=== PATIENT | female | born 1970 | race Two or more races ===

== ENCOUNTER → 2016-10-11 | Outpatient (REF) | payer OTHER ==
[2016-10-11 12:21] LABS: ALBUMIN 3.8 GM/DL (3.2-5.2); ALBUMIN/GLOBULIN RATIO 1.23 (1.00-1.93); ALKALINE PHOSPHATASE 49 U/L (45-117); ALT/SGPT 21 U/L (12-78); ANION GAP 10 MEQ/L (8-16); AST/SGOT 16 U/L (15-37); BILIRUBIN,TOTAL 0.4 MG/DL (0.2-1.0); BLOOD UREA NITROGEN 13 MG/DL (7-18); CALCIUM LEVEL 8.7 MG/DL (8.5-10.1); CARBON DIOXIDE LEVEL 27 MEQ/L (21-32); CHLORIDE LEVEL 104 MEQ/L (98-107); CHOLESTEROL LEVEL 205 MG/DL (<200); CREATININE FOR GFR 0.76 MG/DL (0.55-1.02); FREE T4 0.83 NG/DL (0.76-1.46); GLOMERULAR FILTRATION RATE > 60.0 (>58); GLUCOSE, FASTING 89 MG/DL (70-105); POTASSIUM SERUM 4.7 MEQ/L (3.5-5.1); SODIUM LEVEL 141 MEQ/L (136-145); TOTAL PROTEIN 6.9 GM/DL (6.4-8.2); TRIGLYCERIDES LEVEL 135 MG/DL (<150)
[2016-10-11 12:25] LABS: BASO # 0.1 K/mm3 (0.0-0.2); EOS # 0.2 K/mm3 (0.0-0.50); EOS % 2.4 % (0.0-3.0); LARGE UNSTAINED CELL # 0.2 K/mm3 (0.0-0.4); LARGE UNSTAINED CELL % 2.2 % (0.0-4.0); LYMPH # 1.9 K/mm3 (1.5-4.5); LYMPH % 26.8 % (24.0-44.0); MEAN CORPUSCULAR HGB CONC 32.9 g/dl (32.0-36.5); MEAN CORPUSCULAR VOLUME 97.1 fl (80.0-96.0); MONO # 0.3 K/mm3 (0.0-0.8); MONO % 4.7 % (0.0-5.0); NEUTROPHILS # 4.5 K/mm3 (1.8-7.7); NEUTROPHILS % 62.8 % (36.0-66.0); PLATELET COUNT, AUTOMATED 301 k/mm3 (150-450); RED CELL DISTRIBUTION WIDTH 13.2 % (11.5-14.5); WHITE BLOOD COUNT 7.1 K/mm3 (4.0-10.0)
== END ==
LOC: M SFHCPLAZ 09:41
PROVIDERS: ATTEND Nurse Practitioner Family
DX: Z00.00 Encounter for general adult medical examination without abnormal findings (principal); R94.6 Abnormal results of thyroid function studies; Z13.220 Encounter for screening for lipoid disorders

== ENCOUNTER → 2016-12-09 | Outpatient (REF) | payer OTHER ==
[2016-12-09 14:53] LABS: FREE T4 1.06 NG/DL (0.76-1.46)
== END ==
LOC: M SFHCPLAZ 10:19
PROVIDERS: ATTEND Nurse Practitioner Family
DX: E03.9 Hypothyroidism, unspecified (principal)

== ENCOUNTER → 2017-03-24 | Outpatient (REF) | payer OTHER ==
[2017-03-24 13:12] LABS: FREE T4 1.09 NG/DL (0.76-1.46)
== END ==
LOC: M SFHCPLAZ 07:48
DX: E03.9 Hypothyroidism, unspecified (principal)

== ENCOUNTER → 2017-06-16 | Outpatient (REF) | payer OTHER ==
[2017-06-16 18:54] LABS: TOTAL 25(OH) VITAMIN D 29.5 NG/ML (30.0-100.0)
[2017-06-16 19:02] LABS: ANION GAP 6 MEQ/L (8-16); BLOOD UREA NITROGEN 22 MG/DL (7-18); CALCIUM LEVEL 8.7 MG/DL (8.5-10.1); CARBON DIOXIDE LEVEL 27 MEQ/L (21-32); CHLORIDE LEVEL 109 MEQ/L (98-107); CREATININE FOR GFR 0.98 MG/DL (0.55-1.30); FREE T4 1.46 NG/DL (0.76-1.46); GLOMERULAR FILTRATION RATE > 60.0 (>58); GLUCOSE, FASTING 80 MG/DL (70-100); POTASSIUM SERUM 4.1 MEQ/L (3.5-5.1); SODIUM LEVEL 142 MEQ/L (136-145); THYROID STIMULATING HORMONE 0.356 uIU/ML (0.358-3.740)
[2017-06-16 19:22] LABS: HEMATOCRIT 40.6 % (36.0-47.0); MEAN CORPUSCULAR HEMOGLOBIN 29.6 pg (27.0-33.0); MEAN CORPUSCULAR VOLUME 92.5 fl (80.0-96.0); PLATELET COUNT, AUTOMATED 295 10^3/uL (150-450); RED BLOOD COUNT 4.39 10^6/uL (4.00-5.40); RED CELL DISTRIBUTION WIDTH 12.8 % (11.5-14.5); WHITE BLOOD COUNT 8.3 10^3/uL (4.0-10.0)
== END ==
LOC: M SFHCPLAZ 14:43
DX: E03.9 Hypothyroidism, unspecified (principal); E55.9 Vitamin D deficiency, unspecified; R53.83 Other fatigue
CPT/HCPCS: 84443

== ENCOUNTER → 2017-07-01 | Outpatient (CLI) | payer OTHER | LOC: M WHC 16:25 | DX: Z12.31 Encounter for screening mammogram for malignant neoplasm of breast (principal) | CPT/HCPCS: 77067 ==

== ENCOUNTER → 2017-08-01 | Outpatient (REF) | payer OTHER ==
[2017-08-01 13:02] LABS: FREE T4 1.26 NG/DL (0.76-1.46)
== END ==
LOC: M SFHCPLAZ 08:38
DX: E03.9 Hypothyroidism, unspecified (principal)
CPT/HCPCS: 84443

== ENCOUNTER → 2018-02-03 | Outpatient (REF) | payer OTHER ==
[2018-02-03 12:35] LABS: TOTAL 25(OH) VITAMIN D 40.7 NG/ML (30.0-100.0)
== END ==
LOC: M SFHCPLAZ 08:43
DX: E03.9 Hypothyroidism, unspecified (principal); E55.9 Vitamin D deficiency, unspecified

== ENCOUNTER → 2018-06-09 | Outpatient (REF) | payer OTHER | LOC: M SFHCPLAZ 15:49 | PROVIDERS: ATTEND Nurse Practitioner Family | DX: M54.5 Low back pain (principal) ==

== ENCOUNTER → 2018-06-09 | Outpatient (CLI) | payer OTHER ==
[2018-06-09 14:16] LABS: BASO % 0.9 % (0.0-1.0); EOS # 0.1 10^3/uL (0.0-0.50); EOS % 1.3 % (0.0-3.0); HEMATOCRIT 42.2 % (36.0-47.0); HEMOGLOBIN 13.8 g/dl (12.0-15.5); LYMPH # 2.2 10^3/uL (1.5-4.5); LYMPH % 46.4 % (24.0-44.0); MEAN CORPUSCULAR HEMOGLOBIN 31.3 pg (27.0-33.0); MEAN CORPUSCULAR HGB CONC 32.7 g/dl (32.0-36.5); MEAN CORPUSCULAR VOLUME 95.7 fl (80.0-96.0); MONO # 0.7 10^3/uL (0.0-0.8); MONO % 15.5 % (0.0-5.0); NEUTROPHILS # 1.7 10^3/uL (1.8-7.7); NEUTROPHILS % 35.7 % (36.0-66.0); PLATELET COUNT, AUTOMATED 273 10^3/uL (150-450); RED BLOOD COUNT 4.41 10^6/uL (4.00-5.40); WHITE BLOOD COUNT 4.7 10^3/uL (4.0-10.0)
[2018-06-09 14:43] LABS: ALBUMIN 4.1 GM/DL (3.2-5.2); ALT/SGPT 27 U/L (12-78); BILIRUBIN,TOTAL 0.4 MG/DL (0.2-1.0); BLOOD UREA NITROGEN 15 MG/DL (7-18); CALCIUM LEVEL 8.8 MG/DL (8.5-10.1); CARBON DIOXIDE LEVEL 27 MEQ/L (21-32); CHLORIDE LEVEL 105 MEQ/L (98-107); CREATININE FOR GFR 0.82 MG/DL (0.55-1.30); GLOMERULAR FILTRATION RATE > 60.0 (>58); GLUCOSE, FASTING 92 MG/DL (70-100); POTASSIUM SERUM 3.9 MEQ/L (3.5-5.1); SODIUM LEVEL 138 MEQ/L (136-145); TOTAL PROTEIN 7.2 GM/DL (6.4-8.2)
--- NOTE | 2018-06-09 16:08 | REP ---
RENAL AND BLADDER ULTRASOUND: Real-time sonographic evaluation of the kidneys are performed. The kidneys are normal in size and echotexture, right kidney measuring 9.9 x 4.5 x 4.0 cm and left kidney 12.0 x 4.3 x 5.7 cm. There is no hydronephrosis bilaterally. Focal cystic area in the lower pole of the left kidney probably represents a parapelvic cyst. Alternatively this could represent focal pelvocaliectasis. No renal stone is seen bilaterally. Urinary bladder is moderately distended with no mass or calculus. IMPRESSION: No evidence of renal or bladder calculus. Focal cystic area in the lower pole of the left kidney may represent a parapelvic cyst or focal pelvocaliectasis. Maximum diameter is 1.8 cm. Electronically Signed by Ananth Jones MD 06/10/2018 11:09 A
== END ==
LOC: M RAD 13:53
PROVIDERS: ATTEND Nurse Practitioner Family
DX: N28.1 Cyst of kidney, acquired (principal)

== ENCOUNTER → 2018-06-11 | Outpatient (CLI) | payer OTHER ==
[~2018-06-11] MED LIST: ISOVUE-370 76% 125ML VIAL (Q9967 PER ML) As Ordered ONE
--- NOTE | 2018-06-11 11:39 | REP ---
CT abdomen and pelvis without and with IV contrast: Without oral contrast. History: Acute left-sided low back and abdomen pain. Without sciatica. Comparison CT study January 23, 2010. CT findings: Digital preliminary pattern developer radiographs are unremarkable. The lung bases are clear. There are innumerable tiny low density well circumscribed nonenhancing liver lesions scattered throughout the liver. The largest of these is in the left lobe measuring 2.2 cm in greatest diameter. This as well as the others are visible on previous study from 2009. They may be cysts or benign biliary microhamartomata. In any event, they are unchanged. No solid mass lesion is appreciated in the liver. Spleen is unremarkable. No adrenal lesion is seen on either side. No pancreatic abnormality is noted. No abnormality is noted in the gallbladder. No retroperitoneal mass or adenopathy is seen. Kidneys enhance symmetrically. There is a nonenhancing cyst in the lower pole of the left kidney parapelvic distribution measuring 2.4 cm in greatest diameter. No hydronephrosis is seen. Delayed postcontrast images show no filling defect in the collecting system. Ureters are unremarkable in course and caliber. No bladder mass or filling defect is seen. No urinary tract calculus is seen. Small and large intestinal bowel loops are normal in the abdomen and pelvis. There is a tiny umbilical hernia transmitting a small quantity of fat. No other abdominal wall defect is seen. Normal appendix is seen. There is a 2.3 cm cystic area in the right ovary consistent with a simple follicle cyst. Study is otherwise unremarkable. Impression: 2.3 cm parapelvic cyst lower pole left kidney. Numerous tiny hepatic cysts versus biliary microhamartomata unchanged from 2009. Normal appendix. Otherwise negative CT study abdomen and pelvis. Electronically Signed by Rigo Smalls MD 06/11/2018 12:11 P
== END ==
LOC: M RAD 09:59
PROVIDERS: ATTEND Nurse Practitioner Family
DX: N28.1 Cyst of kidney, acquired (principal); K76.9 Liver disease, unspecified
CPT/HCPCS: 74178; Q9967

== ENCOUNTER → 2018-07-07 | Outpatient (CLI) | payer OTHER ==
[2018-07-07 13:58] LABS: THYROID STIMULATING HORMONE 1.13 uIU/ML (0.358-3.740); TOTAL 25(OH) VITAMIN D 37.1 NG/ML (30.0-100.0)
== END ==
LOC: M WUC 08:21
PROVIDERS: ATTEND Nurse Practitioner Family
DX: E03.9 Hypothyroidism, unspecified (principal); E55.9 Vitamin D deficiency, unspecified

== ENCOUNTER → 2018-07-19 | Outpatient (REF) | payer OTHER | LOC: M LAB REF 15:05 | PROVIDERS: ATTEND Physician Assistant | DX: J02.9 Acute pharyngitis, unspecified (principal) ==

== ENCOUNTER → 2018-10-27 | Outpatient (CLI) | payer OTHER ==
--- NOTE | 2018-10-27 10:39 | REPMRS ---
Patient History The patient states she has not had a clinical breast exam in over a year. Patient is postmenopausal and had first child at age 32. Family history of prostate cancer at age 80 in father. Digital Woman Screen Mammo: October 27, 2018 - Exam #: [id number] Bilateral CC and MLO view(s) were taken. Technologist: Annabella Kowalski, Technologist Prior study comparison: July 01, 2017, digital woman screen mammo performed at [facility]. May 05, 2008, bilateral digital mammo screening bilat, performed at [facility]. FINDINGS: The breast tissue is heterogeneously dense. This may lower the sensitivity of mammography. There is a moderate amount of heterogeneously dense fibroglandular tissue which is fairly symmetric. There is no interval development of dominant mass, architectural distortion, or grouped microcalcification typical of malignancy. There has been no change in the appearance of the mammogram from the prior studies. 3-D tomosynthesis shows no additional findings. Assessment: BI-RADS/ACR category 1 mammogram. Negative Mammogram. Recommendation Routine screening mammogram of both breasts in 1 year (for women over age 40). This patient's Lifetime Breast Cancer RIsk is estimated at 11.8 %. This mammogram was interpreted with the aid of an FDA-approved computer-aided dectection system. Electronically Signed By: Lopez Smalls MD 10/27/18 [id number]
== END ==
LOC: M WHC 07:23
PROVIDERS: ATTEND Nurse Practitioner Family
DX: Z12.31 Encounter for screening mammogram for malignant neoplasm of breast (principal)

== ENCOUNTER → 2018-12-21 | Outpatient (REF) | payer OTHER ==
[2018-12-21 13:28] LABS: THYROID STIMULATING HORMONE 0.192 uIU/ML (0.358-3.740)
[2018-12-21 13:30] LABS: TOTAL 25(OH) VITAMIN D 39.8 NG/ML (30.0-100.0)
== END ==
LOC: M SFHCPLAZ 08:39
PROVIDERS: ATTEND Nurse Practitioner Family
DX: E03.9 Hypothyroidism, unspecified (principal); E55.9 Vitamin D deficiency, unspecified

== ENCOUNTER → 2019-03-08 | Outpatient (REF) | payer OTHER ==
[2019-03-08 10:00] LABS: FREE T4 1.09 NG/DL (0.76-1.46); THYROID STIMULATING HORMONE 1.27 uIU/ML (0.358-3.740)
== END ==
LOC: M SFHCPLAZ 07:51
PROVIDERS: ATTEND Physician Assistant
DX: E03.9 Hypothyroidism, unspecified (principal)

== ENCOUNTER → 2019-04-07 | Outpatient (REF) | payer OTHER | LOC: M SFHCWAGY 17:04 | PROVIDERS: ATTEND Nurse Practitioner Family | DX: Z12.4 Encounter for screening for malignant neoplasm of cervix (principal) ==

== ENCOUNTER → 2019-09-08 | Outpatient (REF) | payer OTHER ==
[2019-09-08 12:30] LABS: HEMOGLOBIN A1c 5.6 %
[2019-09-08 12:42] LABS: ALT/SGPT 30 U/L (12-78); BILIRUBIN,TOTAL 0.3 MG/DL (0.2-1.0); BLOOD UREA NITROGEN 14 MG/DL (7-18); CALCIUM LEVEL 9.1 MG/DL (8.5-10.1); CARBON DIOXIDE LEVEL 28 MEQ/L (21-32); CHLORIDE LEVEL 108 MEQ/L (98-107); CHOLESTEROL LEVEL 229 MG/DL (<200); CHOLESTEROL RISK RATIO 3.693 (<5); CREATININE FOR GFR 0.79 MG/DL (0.55-1.30); GLOMERULAR FILTRATION RATE > 60.0 (>58); GLUCOSE, FASTING 96 MG/DL (70-100); HDL CHOLESTEROL 62 MG/DL (>40); LDL CHOLESTEROL 148 MG/DL (<100); NON-HDL-C 167 MG/DL; POTASSIUM SERUM 4.9 MEQ/L (3.5-5.1); SODIUM LEVEL 141 MEQ/L (136-145); THYROID STIMULATING HORMONE 0.488 uIU/ML (0.358-3.740); TOTAL 25(OH) VITAMIN D 51.4 NG/ML (30.0-100.0); TOTAL PROTEIN 7.4 GM/DL (6.4-8.2); TRIGLYCERIDES LEVEL 95 MG/DL (<150)
== END ==
LOC: M SFHCPLAZ 10:12
PROVIDERS: ATTEND Nurse Practitioner Adult Health
DX: E03.9 Hypothyroidism, unspecified (principal); Z13.220 Encounter for screening for lipoid disorders; E55.9 Vitamin D deficiency, unspecified; Z83.3 Family history of diabetes mellitus

== ENCOUNTER → 2020-01-25 | Outpatient (REF) | payer OTHER | LOC: M SFHCPLAZ 17:10 | PROVIDERS: ATTEND Nurse Practitioner Adult Health | DX: R39.9 Unspecified symptoms and signs involving the genitourinary system (principal) ==

== ENCOUNTER → 2020-06-06 | Outpatient (REF) | payer OTHER | LOC: M WUC 12:09 | PROVIDERS: ATTEND Physician Assistant | DX: R30.0 Dysuria (principal) ==

== ENCOUNTER → 2021-03-13 | Outpatient (CLI) | payer OTHER ==
[~2021-03-13] MED LIST changes: -ISOVUE-370 76% 125ML VIAL (Q9967 PER ML) As Ordered ONE; +PROHANCE 279.3MG/ML 15ML VIAL As Ordered ONE
== END ==
LOC: M RAD 16:07
PROVIDERS: ATTEND Family Medicine
DX: H93.19 Tinnitus, unspecified ear (principal); R42 Dizziness and giddiness

== ENCOUNTER → 2021-08-07 | Outpatient (CLI) | payer OTHER ==
[2021-08-07 17:05] LABS: ALBUMIN 3.7 GM/DL (3.2-5.2); ALT/SGPT 24 U/L (12-78); BILIRUBIN,TOTAL 0.3 MG/DL (0.2-1.0); BLOOD UREA NITROGEN 18 MG/DL (7-18); CALCIUM LEVEL 8.9 MG/DL (8.5-10.1); CARBON DIOXIDE LEVEL 28 MEQ/L (21-32); CHLORIDE LEVEL 109 MEQ/L (98-107); CHOLESTEROL LEVEL 168 MG/DL (<200); CHOLESTEROL RISK RATIO 3.169 (<5); CREATININE FOR GFR 0.94 MG/DL (0.55-1.30); GLOMERULAR FILTRATION RATE > 60.0 (>51); GLUCOSE, FASTING 127 MG/DL (70-100); HDL CHOLESTEROL 53 MG/DL (>40); LDL CHOLESTEROL 67 MG/DL (<100); NON-HDL-C 115 MG/DL; POTASSIUM SERUM 3.8 MEQ/L (3.5-5.1); SODIUM LEVEL 140 MEQ/L (136-145); THYROID STIMULATING HORMONE 0.043 uIU/ML (0.358-3.740); TOTAL PROTEIN 6.9 GM/DL (6.4-8.2); TRIGLYCERIDES LEVEL 240 MG/DL (<150)
[2021-08-07 17:24] LABS: HEMOGLOBIN A1c 5.3 %
== END ==
LOC: M WUC 14:13
PROVIDERS: ATTEND Nurse Practitioner Adult Health
DX: Z83.3 Family history of diabetes mellitus (principal); E03.9 Hypothyroidism, unspecified; Z13.220 Encounter for screening for lipoid disorders

== ENCOUNTER → 2021-11-13 | Outpatient (REF) | payer OTHER ==
[2021-11-13 19:40] LABS: THYROID STIMULATING HORMONE 2.76 uIU/ML (0.358-3.740)
== END ==
LOC: M WUC 16:36
PROVIDERS: ATTEND Nurse Practitioner Adult Health
DX: E03.9 Hypothyroidism, unspecified (principal); R53.83 Other fatigue; E55.9 Vitamin D deficiency, unspecified

== ENCOUNTER → 2022-07-09 | Outpatient (CLI) | payer OTHER ==
[2022-07-09 14:11] LABS: BASO # 0.1 10^3/uL (0.0-0.2); BASO % 0.7 % (0.0-1.0); EOS # 0.1 10^3/uL (0.0-0.5); EOS % 1.4 % (0.0-3.0); LYMPH # 2.8 10^3/uL (1.5-5.0); LYMPH % 39.1 % (24.0-44.0); MEAN CORPUSCULAR HGB CONC 31.8 g/dl (32.0-36.5); MEAN CORPUSCULAR VOLUME 94.2 fl (80.0-96.0); MONO # 0.4 10^3/uL (0.0-0.8); MONO % 5.4 % (2.0-8.0); NEUTROPHILS # 3.8 10^3/uL (1.5-8.5); NEUTROPHILS % 53.1 % (36.0-66.0); PLATELET COUNT, AUTOMATED 303 10^3/uL (150-450); RED BLOOD COUNT 4.67 10^6/uL (4.00-5.40); WHITE BLOOD COUNT 7.2 10^3/uL (4.0-10.0)
[2022-07-09 14:13] LABS: THYROID STIMULATING HORMONE 1.676 uIU/ML (0.55-4.78)
[2022-07-09 14:16] LABS: FREE T4 1.44 NG/DL (0.89-1.76)
== END ==
LOC: M PLALAB 10:42
PROVIDERS: ATTEND Nurse Practitioner Family
DX: E03.9 Hypothyroidism, unspecified (principal)

== ENCOUNTER → 2023-02-11 | Outpatient (CLI) | payer OTHER ==
[2023-02-11 13:31] LABS: HEMATOCRIT 42.1 % (36.0-47.0); HEMOGLOBIN 13.7 g/dl (12.0-15.5); MEAN CORPUSCULAR HEMOGLOBIN 30.9 pg (27.0-33.0); MEAN CORPUSCULAR HGB CONC 32.5 g/dl (32.0-36.5); PLATELET COUNT, AUTOMATED 227 10^3/uL (150-450); RED BLOOD COUNT 4.43 10^6/uL (4.00-5.40); WHITE BLOOD COUNT 4.5 10^3/uL (4.0-10.0)
[2023-02-11 14:02] LABS: ALBUMIN 3.6 G/DL (3.2-5.2); ALKALINE PHOSPHATASE 72 U/L (46-116); ALT/SGPT 46 U/L (7.0-40); AST/SGOT 20 U/L (<34); BILIRUBIN,TOTAL 0.5 MG/DL (0.3-1.2); BLOOD UREA NITROGEN 10 MG/DL (9-23); CALCIUM LEVEL 8.7 MG/DL (8.5-10.1); CARBON DIOXIDE LEVEL 28 MMOL/L (20-31); CHLORIDE LEVEL 107 MMOL/L (98-107); CREATININE FOR GFR 0.82 MG/DL (0.55-1.30); GLOMERULAR FILTRATION RATE > 60.0 (>51); GLUCOSE, FASTING 91 MG/DL (60-100); POTASSIUM SERUM 4.3 MMOL/L (3.5-5.1); SODIUM LEVEL 139 MMOL/L (136-145); TOTAL PROTEIN 6.6 G/DL (5.7-8.2)
== END ==
LOC: M PLAIMG 11:20
PROVIDERS: ATTEND Nurse Practitioner Adult Health
DX: R35.0 Frequency of micturition (principal); M54.50 Low back pain, unspecified

== ENCOUNTER → 2023-02-12 | Outpatient (CLI) | payer OTHER | LOC: M RAD 11:31 | PROVIDERS: ATTEND Physician Assistant | DX: N20.0 Calculus of kidney (principal) ==

== ENCOUNTER → 2023-09-22 | Outpatient (CLI) | payer OTHER ==
[2023-09-22 11:18] LABS: HEMOGLOBIN A1c 5.2 % (4.0-6.0)
[2023-09-22 11:40] LABS: ALBUMIN 3.8 G/DL (3.2-5.2); ALKALINE PHOSPHATASE 69 U/L (46-116); ALT/SGPT 23 U/L (7.0-40); AST/SGOT 14 U/L (<34); BILIRUBIN,TOTAL 0.5 MG/DL (0.3-1.2); BLOOD UREA NITROGEN 18 MG/DL (9-23); CALCIUM LEVEL 8.8 MG/DL (8.5-10.1); CARBON DIOXIDE LEVEL 27 MMOL/L (20-31); CHLORIDE LEVEL 109 MMOL/L (98-107); CHOLESTEROL LEVEL 209 MG/DL (<200); CHOLESTEROL RISK RATIO 3.54 (<5); CREATININE FOR GFR 0.77 MG/DL (0.55-1.30); GLOMERULAR FILTRATION RATE > 60.0 (>51); GLUCOSE, FASTING 94 MG/DL (60-100); POTASSIUM SERUM 4.3 MMOL/L (3.5-5.1); SODIUM LEVEL 141 MMOL/L (136-145); TOTAL PROTEIN 6.5 G/DL (5.7-8.2); TRIGLYCERIDES LEVEL 135 MG/DL (<150)
[2023-09-22 11:41] LABS: THYROID STIMULATING HORMONE 2.999 uIU/ML (0.55-4.78)
[2023-09-22 11:42] LABS: FREE T4 1.34 NG/DL (0.89-1.76)
== END ==
LOC: M WUC 08:38
PROVIDERS: ATTEND Nurse Practitioner Adult Health
DX: Z00.00 Encounter for general adult medical examination without abnormal findings (principal); E03.9 Hypothyroidism, unspecified; E55.9 Vitamin D deficiency, unspecified

== ENCOUNTER → 2023-10-06 | Outpatient (CLI) | payer OTHER | LOC: M WHC 07:35 | PROVIDERS: ATTEND Nurse Practitioner Adult Health | DX: Z12.31 Encounter for screening mammogram for malignant neoplasm of breast (principal) ==

== ENCOUNTER → 2023-12-08 | Outpatient (CLI) | payer OTHER | LOC: M RAD 06:49 | PROVIDERS: ATTEND Nurse Practitioner Adult Health | DX: Z87.891 Personal history of nicotine dependence (principal) ==

== ENCOUNTER → 2024-03-22 | Outpatient (REF) | payer OTHER ==
[2024-03-22 19:02] LABS: ALBUMIN 4.3 G/DL (3.2-5.2); ALKALINE PHOSPHATASE 67 U/L (35-104); ALT/SGPT 25 U/L (7.0-40); AST/SGOT 22 U/L (<34); BILIRUBIN,TOTAL 0.8 MG/DL (0.3-1.2); BLOOD UREA NITROGEN 19 MG/DL (9-23); CALCIUM LEVEL 9.7 MG/DL (8.5-10.1); CARBON DIOXIDE LEVEL 28 MMOL/L (20-31); CHLORIDE LEVEL 105 MMOL/L (98-107); CREATININE FOR GFR 0.83 MG/DL (0.55-1.30); FREE T4 1.52 NG/DL (0.89-1.76); GLOMERULAR FILTRATION RATE > 60.0 (>51); GLUCOSE, FASTING 75 MG/DL (60-100); POTASSIUM SERUM 4.3 MMOL/L (3.5-5.1); SODIUM LEVEL 141 MMOL/L (136-145); TOTAL PROTEIN 7.1 G/DL (5.7-8.2)
== END ==
LOC: M SFHCPLAZ 17:19
PROVIDERS: ATTEND Nurse Practitioner Adult Health
DX: E03.9 Hypothyroidism, unspecified (principal); E55.9 Vitamin D deficiency, unspecified; R91.1 Solitary pulmonary nodule

== ENCOUNTER → 2024-04-12 | Outpatient (REF) | payer OTHER | LOC: M PLALAB 12:00 | PROVIDERS: ATTEND Obstetrics & Gynecology | DX: Z01.419 Encounter for gynecological examination (general) (routine) without abnormal findings (principal) ==

== ENCOUNTER → 2024-06-30 | Outpatient (CLI) | payer OTHER ==
[~2024-06-30] MED LIST changes: +ISOVUE-370 76% 100ML VIAL As Ordered ONE; -PROHANCE 279.3MG/ML 15ML VIAL As Ordered ONE
== END ==
LOC: M RAD 17:06
PROVIDERS: ATTEND Nurse Practitioner Adult Health
DX: R91.1 Solitary pulmonary nodule (principal)

== ENCOUNTER → 2024-11-26 | Outpatient (CLI) | payer OTHER | LOC: M PLAIMG 11:09 | PROVIDERS: ATTEND Nurse Practitioner Adult Health | DX: M47.816 Spondylosis without myelopathy or radiculopathy, lumbar region (principal) ==

== ENCOUNTER → 2025-01-12 | Outpatient (CLI) | payer OTHER | LOC: M PLAIMG 14:40 | PROVIDERS: ATTEND Nurse Practitioner Adult Health | DX: R91.1 Solitary pulmonary nodule (principal) ==